=== PATIENT | female | born 1985 | race Caucasian/White ===

== ENCOUNTER 2016-08-26 20:02 | Emergency (ER) | payer OTHER ==
[2016-08-26 20:15] VITALS: BP 123/74; PULSE 94; TEMP 98.3; BMI 30.9
--- NOTE | 2016-08-26 21:20 | PDOC ---
History of Present Illness - General Chief Complaint: Sore Throat Stated Complaint: COLD SYMPTOMS Time Seen by Provider: 08/26/16 21:04 - History of Present Illness Initial Comments: 08/26/16 21:19 CHIEF COMPLAINT: sore throat HISTORY OF PRESENT ILLNESS: 31 yo F with no significant PMH presents to ED with sore throat and fever x 5 days. Patient also reports she feels a lump to her R jaw today. She has not taken any medications including ibuprofen or Tylenol. She reports having very little cough and denies any sneezing or runny nose. No recent travel or sick contacts. PAST MEDICAL HISTORY: Denies past medical history FAMILY HISTORY: Denies SOCIAL HISTORY: Denies tobacco, alcohol, illicit drug use. SURGICAL HISTORY: Denies ALLERGIES: No known drug allergies REVIEW OF SYSTEMS General/Constitutional: Denies fever or chills. Denies weakness, weight change. HEENT: Sore throat. Denies change in vision. Denies ear pain or discharge. Denies sore throat. Cardiovascular: Denies chest pain or shortness of breath. Respiratory: Denies cough, wheezing, or hemoptysis. Gastrointestinal: Denies nausea, vomiting, diarrhea or constipation. Denies rectal bleeding. Genitourinary: Denies dysuria, frequency, or change in urination. Musculoskeletal: Denies joint or muscle swelling or pain. Denies neck or back pain. Skin and breasts: Denies rash or easy bruising. Neurologic: Denies headache, vertigo, loss of consciousness, or loss of sensation. PHYSICAL EXAM General Appearance: Well-appearing, appropriately dressed. No apparent distress , no intoxication. HEENT: 1 cm x 1 cm mobile nodule to R mastoid. Tonsils erythematous. No tonsilar exudate, tonsil 1+ bilaterally. EOMI, PERRLA, normal ENT inspection, normal voice, TMs normal, pharynx normal. No conjunctival pallor. No photophobia, scleral icterus. Neck: R cervical lymphadenopathy. Respiratory/Chest: Lungs CTAB. Cardiovascular: RRR. S1, S2. Integumentary: Appropriate color, dry, warm. No cyanosis, erythema, jaundice or rash Neurologic: brainer II-XII intact. Fully oriented, alert. Appropriate mood/affect. Motor strength 5/5. No appreciable EOM palsy, facial droop or sensory deficit. 08/26/16 22:13 Past History - Past Medical History Allergies/Adverse Reactions: Allergies Allergy/AdvReac Type Severity Reaction Status Date / Time No Known Allergies Allergy Verified 08/26/16 20:13 Home Medications: Ambulatory Orders Clindamycin [Cleocin -] 300 mg PO Q6H #28 capsule 08/26/16 Ibuprofen 600 mg PO Q6H PRN #24 tablet 08/26/16 Other medical history: denies - Psycho/Social/Smoking Cessation Hx Suicidal Ideation: No Smoking History: Never smoked Hx Alcohol Use: No Drug/Substance Use Hx: No *Physical Exam - Vital Signs Last Vital Signs Temp Pulse Resp BP Pulse Ox 98.3 F 94 H 18 123/74 100 08/26/16 20:13 08/26/16 20:13 08/26/16 20:13 08/26/16 20:13 08/26/16 20:13 Medical Decision Making - Medical Decision Making 08/26/16 22:16 31 yo F presents with strep throat -Possible retropharyngeal abscess Will treat with clindamycin and with close follow up with ENT. *DC/Admit/Observation/Transfer Diagnosis at time of Disposition: Strep pharyngitis, Retropharyngeal abscess - Discharge Dispostion Admit: No - Prescriptions Prescriptions: Clindamycin [Cleocin -] 300 mg PO Q6H #28 capsule Ibuprofen 600 mg PO Q6H PRN #24 tablet PRN Reason: Fever - Referrals Referrals: William Solano MD [Staff Physician] - Dread Dewitt MD [Staff Physician] - - Patient Instructions Printed Discharge Instructions: DI for Strep Throat Additional Instructions: Please take your medications as prescribed. You MUST follow up with ENT on SUNDAY for further evaluation and possible drainage of abscess.
[2016-08-26] MEDS ORDERED: CLINDAMYCIN HCL 300 MG CAPSULE PO ONE (21:28)
[2016-08-26] MEDS ORDERED: CLINDAMYCIN HCL 150 MG CAPSULE (FP) PO ONE (21:45)
== END 2016-08-26 22:22 | disposition home or self-care (01) ==
LOC: JERFT 20:02
DX: J02.0 Streptococcal pharyngitis (principal); J39.0 Retropharyngeal and parapharyngeal abscess; B95.0 Streptococcus, group A, as the cause of diseases classified elsewhere
CPT/HCPCS: 87070; 87077; 87430; 99281-25

== ENCOUNTER 2017-09-05 12:59 | Emergency (ER) | payer OTHER ==
[2017-09-05 13:04] VITALS: BMI 32.1
--- NOTE | 2017-09-05 13:44 | PDOC ---
Attending Attestation - HPI HPI: 09/05/17 14:10 The patient is a 32 year old female, with no significant past medical history, who presents to the emergency department with chest pain since approximately 08: 00 this morning. The patient reports her chest pain is intermittent, localized substernally, and described as a pressure. Patient reports her pain radiates into her right arm, with associated numbness in the right hand and bilateral neck. She denies any shortness of breath, diaphoresis, or palpitations. The patient reports associated nausea and vomiting(nonbloody/nonbilious), but denies any abdominal pain, diarrhea, or constipation. Patient reports her pain is non pleuritic, non positional, and not related to food. Patient reports similar chest pain about 2 months ago, but states the symptoms resolved on their own, so she did not follow-up with her PCP. Patient reports generalized headache and dizziness, but denies any fever, chills, or body aches. She denies any recent travel or sick contacts. Allergies: NKDA Past Surgical History: Sterilization Social History: Non smoker. No ETOH or recreational drug use. Family History: Diabetes(Mother and Father) - Medical Decision Making 09/05/17 14:10 Documentation prepared by Tonja Kovacs, acting as medical safety director for Rashad Saravia MD. <Tonja Kovacs - Last Filed: 09/05/17 16:31> - Resident Resident Name: Dee Mckee - ED Attending Attestation I have performed the following: I have examined & evaluated the patient, The case was reviewed & discussed with the resident, I agree w/resident's findings & plan, Exceptions are as noted - Physicial Exam PE: 09/05/17 16:34 Patient is awake and alert, resting comfortable, in no distress Normocephalic, atraumatic; PERRLA, EOMI, no scleral icterus, mmm cta, + reproducible parasternal tenderness to palpation rrr sft, ndm + mild right upper quadrant tenderness to palpation, Wright's is negative; no cva tpp no edema - Medical Decision Making 09/05/17 16:37 Patient is well-appearing 32-year-old female who presents with rate producible anterior chest wall tenderness to palpation likely consistent with costochondritis, right upper quadrant tenderness to palpation and several episodes of nonbloody, nonbilious vomiting. EKG reveals no evidence of acute ischemia or right sided heart strain. Patient is negative for PE by the Perc rule. Patient's symptoms improved after administration of Zantac and Maalox. Will obtain right upper quadrant ultrasound to evaluate for fatty liver versus gallstones. Likely discharge. <Rashad Saravia - Last Filed: 09/05/17 16:38>
[2017-09-05] MEDS ORDERED: MAG HYDROX/AL HYDROX/SIMETH 30 ML UNIT-DOSE CUP PO ONE (14:09)
[2017-09-05] MEDS ORDERED: PANTOPRAZOLE SODIUM 40 MG VIAL IVPUSH ONE (14:09)
--- NOTE | 2017-09-05 14:15 | PDOC ---
History of Present Illness - General Chief Complaint: Chest Pain Stated Complaint: CHEST PAIN, VOMITING Time Seen by Provider: 09/05/17 13:16 History Source: Patient - History of Present Illness Initial Comments: 09/05/17 14:10 32 y/o F with no significant PMH who presents to the ED c/o chest pain for the past six hours. As per pt, she developed mid-sternal chest pain suddenly at 8AM today. The pain is intermittent, feels like a "chest pressure" that radiates to her R arm, and both sides of her neck b/l. It is nonpositional and nonpleuritic. Pain is not a/w food ingestion, and is not a/w burning in her throat or chest. During this time, pt has also had 4-5 episodes of NBNB emesis, as well as generalized LAGUNAS. Denies fever, chills, recent illnesses, SOB, or changes in urinary or bowel function. She had similar pain two months ago, however it subsided on its own. She does not follow routinely with a physician. Past History - Travel Traveled outside of the country in the last 30 days: No - Past Medical History Allergies/Adverse Reactions: Allergies Allergy/AdvReac Type Severity Reaction Status Date / Time No Known Allergies Allergy Verified 09/05/17 13:04 Home Medications: Ambulatory Orders Clindamycin [Cleocin -] 300 mg PO Q6H #28 capsule 08/26/16 Ibuprofen 600 mg PO Q6H PRN #24 tablet 08/26/16 COPD: No - Suicide/Smoking/Psychosocial Hx Smoking History: Never smoked Information on smoking cessation initiated: No Hx Alcohol Use: No Drug/Substance Use Hx: No Substance Use Type: None Review of Systems - Review of Systems Able to Perform ROS?: Yes Cardiac (ROS): Yes: Chest Pain, Lightheadedness ABD/GI: Yes: Nausea, Vomiting *Physical Exam - Vital Signs Last Vital Signs Temp Pulse Resp BP Pulse Ox 98 F 63 18 108/62 97 09/05/17 13:02 09/05/17 13:02 09/05/17 13:02 09/05/17 13:02 09/05/17 13:02 - Physical Exam General Appearance: Yes: Nourished HEENT: positive: EOMI, LU Neck: positive: Supple Respiratory/Chest: positive: Lungs Clear Cardiovascular: positive: Regular Rhythm, S1, S2 Vascular Pulses: Dorsalis-Pedis (R): 1+ Gastrointestinal/Abdominal: positive: Normal Bowel Sounds, Flat, Soft 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 Heart Score/ECG Review - Electrocardiogram EKG: Normal - Age Age: </= 45 - Risk Factors Based on the list above the patient has:: No risk factors known - ECG Intrepretation Rhythm: Regular Rhythm - [place]: Normal ED Treatment Course - LABORATORY CBC & Chemistry Diagram: 09/05/17 02:40 09/05/17 17:02 - RADIOLOGY Radiology Studies Ordered: Category Date Time Status CXRPORT [CHEST X-RAY PORTABLE*] [RAD] Stat Radiology 09/05/17 14:07 Ordered Medical Decision Making - Medical Decision Making 09/05/17 14:26 32 y/o F with no significant PMH who presents to the ED c/o chest pain for the past six hours. As per pt, she developed mid-sternal chest pain suddenly at 8AM today. Pt is a young female with HEART score of 0-1. Cardiac suspicion is less likely, however possible cardiac differentials include: r/o ACS, prinzmetal's angina, aortic dissection, pericarditis. Pt with emesis with GI possibilities such as cholecystitis, gastritis. Pain nonpleuritic, with PERC of 0, PE less likely. As pt young woman, would also first do urine HCG. Will order Troponins x 2 - though ACS less likely in this young pt, will get to r/o EKG - has been done, NSR QTc 423ms urine HCG CXR CBC BMP UA Will give Maalox x 1, to see if pain subsides Protonix 20mg IVP x 1 09/05/17 17:13 Pt with increased RUQ tenderness - pending sono CMP pending 09/05/17 17:15 09/05/17 19:10 Abd sono: 0.4cm GB echogenic focus- possible nonmobile calculus vs. polyp. Without CBD dilation Awaiting CMP result - to check liver enzymes. Spoke to lab
[2017-09-05] MEDS ORDERED: MAG HYDROX/AL HYDROX/SIMETH 30 ML UNIT-DOSE CUP ONE (14:23)
[2017-09-05] MEDS ORDERED: PANTOPRAZOLE SODIUM 40 MG VIAL ONE (14:24)
[2017-09-05 14:53] LABS: BASO % 0.7 % (0-2.0); EOS % 2.5 % (0-4.5); HEMATOCRIT 40.4 % (32.4-45.2); HEMOGLOBIN 13.2 GM/dL (10.7-15.3); LYMPH % 28.4 % (8-40); MCH 26.4 pg (25.7-33.7); MCHC 32.6 g/dl (32.0-36.0); MEAN CELL VOLUME 80.9 fl (80-96); MEAN PLT VOLUME 9.5 fl (7.5-11.1); MONO % 6.3 % (3.8-10.2); NEUT % 62.1 % (42.8-82.8); PLATELET COUNT 264 K/MM3 (134-434); RDW 14.6 % (11.6-15.6); WHITE BLOOD COUNT 10.4 K/mm3 (4.0-10.0)
[2017-09-05 15:15] LABS: HCG,QUALITATIVE URINE NEGATIVE
[2017-09-05 15:16] LABS: URINE APPEARANCE CLEAR; URINE BILIRUBIN NEGATIVE (NEGATIVE); URINE BLOOD NEGATIVE (NEGATIVE); URINE COLOR STRAW; URINE GLUCOSE (UA) NEGATIVE (NEGATIVE); URINE KETONE NEGATIVE (NEGATIVE); URINE LEUK ESTERASE NEGATIVE (NEGATIVE); URINE NITRITE NEGATIVE (NEGATIVE); URINE PROTEIN NEGATIVE (NEGATIVE); URINE UROBILINOGEN NEGATIVE mg/dL (0.2-1.0)
[2017-09-05 19:25] LABS: ALBUMIN 3.9 g/dl (3.4-5.0); ALK PHOS 85 U/L (45-117); ANION GAP 10 (8-16); BILIRUBIN,TOTAL 0.4 mg/dL (0.2-1.0); BLOOD UREA NITROGEN 15 mg/dL (7-18); CALCIUM 9.4 mg/dL (8.5-10.1); CHLORIDE 111 mmol/L (98-107); CO2 22 mmol/L (21-32); CREATININE 0.7 mg/dL (0.55-1.02); GLUCOSE,RANDOM 88 mg/dL (74-106); POTASSIUM 3.8 mmol/L (3.5-5.1); SGOT/AST 13 U/L (15-37); SGPT/ALT 26 U/L (12-78); SODIUM 143 mmol/L (136-145); TOT PROT 6.9 g/dl (6.4-8.2)
--- NOTE | 2017-09-05 19:52 | PDOC ---
*Physical Exam - Vital Signs Last Vital Signs Temp Pulse Resp BP Pulse Ox 98 F 63 18 108/62 97 09/05/17 13:02 09/05/17 13:02 09/05/17 13:02 09/05/17 13:02 09/05/17 13:02 - Physical Exam Comments: 09/05/17 19:46 gen: aaox3, nad heart: R chest wall ttp - reproduces pain, RRR lungs: cta b/l abd: soft, nt/nd +bs Ext: no edema, ambulates with a steady gait neuro: cn ii-xii grossly intact, no focal deficits ED Treatment Course - LABORATORY CBC & Chemistry Diagram: 09/05/17 02:40 09/05/17 17:02 - ADDITIONAL ORDERS Additional order review: Laboratory Results 09/05/17 09/05/17 09/05/17 17:19 17:02 15:00 Sodium 143 Potassium 3.8 Chloride 111 H Carbon Dioxide 22 Anion Gap 10 BUN 15 Creatinine 0.7 Creat Clearance w eGFR > 60 Random Glucose 88 Calcium 9.4 Total Bilirubin 0.4 AST 13 L ALT 26 Alkaline Phosphatase 85 Troponin I < 0.02 Total Protein 6.9 Albumin 3.9 Urine Color Straw Urine Appearance Clear Urine pH 6.0 Ur Specific [place] 1.006 Urine Protein Negative Urine Glucose (UA) Negative Urine Ketones Negative Urine Blood Negative Urine Nitrite Negative Urine Bilirubin Negative Urine Urobilinogen Negative Ur Leukocyte Esterase Negative Urine HCG, Qual Negative 09/05/17 02:21 Sodium Potassium Chloride Carbon Dioxide Anion Gap BUN Creatinine Creat Clearance w eGFR Random Glucose Calcium Total Bilirubin AST ALT Alkaline Phosphatase Troponin I < 0.02 Total Protein Albumin Urine Color Urine Appearance Urine pH Ur Specific [place] Urine Protein Urine Glucose (UA) Urine Ketones Urine Blood Urine Nitrite Urine Bilirubin Urine Urobilinogen Ur Leukocyte Esterase Urine HCG, Qual 09/05/17 02:40 RBC 5.00 MCV 80.9 MCHC 32.6 RDW 14.6 MPV 9.5 Neutrophils % 62.1 Lymphocytes % 28.4 Monocytes % 6.3 Eosinophils % 2.5 Basophils % 0.7 - Medications Given in the ED: ED Medications Discontinued Medications Generic Name Dose Route Start Last Admin Trade Name Freq PRN Reason Stop Dose Admin Al Hydroxide/Mg Hydroxide 30 ml 09/05/17 14:09 09/05/17 14:37 Mylanta Oral Suspension - PO 09/05/17 14:10 30 ml ONCE ONE Administration Pantoprazole Sodium 40 mg 09/05/17 14:09 09/05/17 14:37 Protonix Iv IVPUSH 09/05/17 14:10 40 mg ONCE ONE Administration Medical Decision Making - Medical Decision Making 09/05/17 19:47 pt signed out pending labs pt with chest wall pain and epigastric/ruq pain lfts negative for acute findings renal function normal no pain at this time epigastric pain resolved with maalox will give ranitidine rx recommend gi follow up for polyp vs stone in gb without acute rigo stable for d/c to home answered all questions. discussed all reasons to return to the ED and reasons to follow up with GI *DC/Admit/Observation/Transfer Diagnosis at time of Disposition: Epigastric pain, Biliary colic, Chest wall pain - Discharge Dispostion Disposition: HOME Condition at time of disposition: Stable Admit: No - Prescriptions Prescriptions: Ranitidine HCl [Acid Control] 150 mg PO BID #28 tablet - Referrals Referrals: Genevieve Babin MD [Staff Physician] - Kei Caicedo MD [Staff Physician] - - Patient Instructions Printed Discharge Instructions: DI for Atypical Chest Pain, DI for Epigastric Pain Additional Instructions: Please take all medications as prescribed. Please make an appointment to see the extermination inspector in the next 2-3 days. Please return to the ED with any worsening symptoms or continued concern. Please also make an appointment to see your PMD in the next 2-3 days. - Post Discharge Activity
[2017-09-05 20:54] VITALS: BP 108/60; PULSE 62; TEMP 98
--- NOTE | 2017-09-06 11:52 | EKG ---
Test Reason : Blood Pressure : / mmHG Vent. Rate : 063 BPM Atrial Rate : 063 BPM P-R Int : 118 ms QRS Dur : 098 ms QT Int : 414 ms P-R-T Axes : 008 023 022 degrees QTc Int : 423 ms NORMAL SINUS RHYTHM NORMAL ECG NO PREVIOUS ECGS AVAILABLE Confirmed by ITALO BAZAN MD ([id number]) on 09/06/2017 11:51:34 AM Referred By: Confirmed By:ITALO BAZAN MD
== END 2017-09-05 20:54 | disposition home or self-care (01) ==
LOC: JER 12:59
PROC: 3E033GC Introduction of Other Therapeutic Substance into Peripheral Vein, Percutaneous Approach (ICD-10-PCS; principal; 2017-09-05)
DX: K80.50 Calculus of bile duct without cholangitis or cholecystitis without obstruction (principal); R07.89 Other chest pain
CPT/HCPCS: 36415; 71045-TC-FY; 76700-TC; 80053; 81003; 84484; 84703; 85025; 93005; 93010; 99282-25

== ENCOUNTER 2018-03-18 17:13 | Emergency (ER) | payer OTHER ==
--- NOTE | 2018-03-18 17:33 | PDOC ---
Rapid Medical Evaluation Medical Evaluation: Allergies Allergy/AdvReac Type Severity Reaction Status Date / Time No Known Allergies Allergy Verified 03/18/18 17:33 03/18/18 17:34 33-year-old female s/p laceration repair 2 wks ago (states was here, although no record) presents for suture removal. -No erythema or discharge from wound -Wound well-approximated -Patient to clarify with registration whether she has 2 charts -To FT for further evaluation Discharge Disposition - Discharge Dispostion Last Admission D/C Date: 11/08/08 - Referrals - Patient Instructions - Post Discharge Activity
[2018-03-18 17:37] VITALS: BP 117/71; PULSE 80; TEMP 98.3; BMI 33.2
--- NOTE | 2018-03-18 17:57 | PDOC ---
Suture Removal/Wound Check HPI - History of Present Illness Chief Complaint: Suture/Staple Removal(Here) Stated Complaint: STITCHES REMOVAL Time Seen by Provider: 03/18/18 17:52 History Source: Yes: Patient Exam Limitations: Yes: No Limitations (Pt's sutures were removed from left hand. No signs of secondary infection.) Past History - Past Medical History Allergies/Adverse Reactions: Allergies Allergy/AdvReac Type Severity Reaction Status Date / Time No Known Allergies Allergy Verified 03/18/18 17:33 Home Medications: Ambulatory Orders NK [No Known Home Medication] 03/18/18 COPD: No - Immunization History Immunization Up to Date: Yes - Suicide/Smoking/Psychosocial Hx Smoking History: Never smoked Information on smoking cessation initiated: No Hx Alcohol Use: No Drug/Substance Use Hx: No Substance Use Type: None *Physical Exam - Vital Signs Last Vital Signs Temp Pulse Resp BP Pulse Ox 98.3 F 80 18 117/71 100 03/18/18 17:33 03/18/18 17:33 03/18/18 17:33 03/18/18 17:33 03/18/18 17:33 *DC/Admit/Observation/Transfer Diagnosis at time of Disposition: Encounter for removal of sutures - Discharge Dispostion Disposition: HOME Condition at time of disposition: Stable - Referrals - Patient Instructions Printed Discharge Instructions: DI for Suture Removal - Post Discharge Activity
== END 2018-03-18 18:00 | disposition home or self-care (01) ==
LOC: JER 17:13 → JERFT 17:13
DX: Z48.817 Encounter for surgical aftercare following surgery on the skin and subcutaneous tissue (principal); Z48.02 Encounter for removal of sutures
CPT/HCPCS: 99281-25

== ENCOUNTER 2018-05-29 16:14 | Emergency (ER) | payer OTHER ==
--- NOTE | 2018-05-29 16:19 | PDOC ---
Rapid Medical Evaluation Time Seen by Provider: 05/29/18 16:16 Medical Evaluation: Allergies Allergy/AdvReac Type Severity Reaction Status Date / Time No Known Allergies Allergy Verified 03/18/18 17:33 05/29/18 16:16 Pt c/o: rt knee and elbow pain x 15 days, took antinflammatory meds w/ no relief On Brief exam: FROM noted, no edema/ deformity Pt ordered for: none Pt to proceed to the ED Discharge Disposition - Diagnosis Elbow pain, right - Referrals - Patient Instructions - Post Discharge Activity
[2018-05-29 16:20] VITALS: BP 103/54; PULSE 68; TEMP 98.2; BMI 33.0
--- NOTE | 2018-05-29 17:01 | PDOC ---
History of Present Illness - General Chief Complaint: Pain Stated Complaint: RT KNEE PAIN, RT ELBOW Time Seen by Provider: 05/29/18 16:16 - History of Present Illness Initial Comments: 05/29/18 16:57 33-year-old female without comorbidities presents for evaluation of atraumatic onset of right knee and right elbow pain 2 and half weeks Past History - Past Medical History Allergies/Adverse Reactions: Allergies Allergy/AdvReac Type Severity Reaction Status Date / Time No Known Allergies Allergy Verified 05/29/18 16:20 Home Medications: Ambulatory Orders Ibuprofen [Motrin -] 600 mg PO TID #30 tablet 05/29/18 COPD: No - Immunization History Immunization Up to Date: Yes - Suicide/Smoking/Psychosocial Hx Smoking History: Never smoked Information on smoking cessation initiated: No Hx Alcohol Use: No Drug/Substance Use Hx: No Substance Use Type: None Review of Systems - Review of Systems Musculoskeletal: Yes: Joint Pain *Physical Exam - Vital Signs Last Vital Signs Temp Pulse Resp BP Pulse Ox 98.2 F 68 19 103/54 L 98 05/29/18 16:17 05/29/18 16:17 05/29/18 16:17 05/29/18 16:17 05/29/18 16:17 - Physical Exam Comments: 05/29/18 16:58 Right elbow skin color and temperature are normal range of motion is full and nonpainful there is tenderness about the medial lateral epicondyle exacerbated with resisted wrist flexion and extension no evidence of instability or gross sensorimotor deficits she's neurovascularly intact Right knee skin color and temperature are normal range of motion is full and nonpainful with crepitation about the patellofemoral joint no medial lateral joint line tenderness mild medial patella facet set pain and lateral patella facet pain thighs and calves are soft and nontender negative straight leg raise test she's neurovascularly intact. Medical Decision Making - Medical Decision Making 05/29/18 16:58 Medial and lateral epicondylitis which is rare is most of her pain is about the medial epicondyle and patellofemoral syndrome I will have her follow-up with orthopedic surgery as prescribed Motrin for pain *DC/Admit/Observation/Transfer Diagnosis at time of Disposition: Elbow pain, right, Patellofemoral crepitus, Medial epicondylitis of elbow, Lateral epicondylitis - Discharge Dispostion Disposition: HOME Condition at time of disposition: Stable Decision to Admit order: No - Prescriptions Prescriptions: Ibuprofen [Motrin -] 600 mg PO TID #30 tablet - Referrals Referrals: Israel Robles MD [Staff Physician] - - Patient Instructions Printed Discharge Instructions: Lateral Epicondylitis, Medial Epicondylitis, DI for Medial Epicondylitis, DI for Lateral Epicondylitis (Tennis Elbow), Patellofemoral Pain Syndrome Additional Instructions: Follow-up with orthopedic surgery in 2-3 days for further evaluation and treatment options. Return to the emergency room should symptoms worsen or go unresolved. Given you a prescription for Motrin which is one tablet 3 times a day with food discontinue the medication at the bothers her stomach do not take any other anti-inflammatories on top of that however he may take Tylenol as directed if needed for pain - Post Discharge Activity
== END 2018-05-29 17:07 | disposition home or self-care (01) ==
LOC: JERFT 16:14
DX: M25.521 Pain in right elbow (principal); M24.80 Other specific joint derangements of unspecified joint, not elsewhere classified; M77.11 Lateral epicondylitis, right elbow; M77.12 Lateral epicondylitis, left elbow
CPT/HCPCS: 99281-25